=== PATIENT | female | born 1990 | race Caucasian/White ===

== ENCOUNTER 2019-03-14 11:37 | Emergency (ER) | payer OTHER ==
[~2019-03-14] VITALS: Ht 167.6 cm; Wt 74.6 kg
[~2019-03-14 11:37] MED LIST: IBUP800T48 PO
[2019-03-14 11:41] VITALS: BP 114/73; PULSE 71; RESP 20; Ht 167.6 cm; Wt 74.6 kg
[2019-03-14] MEDS ORDERED: KETOROLAC 60 MG INJ IM STA (12:10)
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
== END 2019-03-14 14:00 | disposition home or self-care (01) ==
LOC: FTE 11:37
DX: M25.522 Pain in left elbow (principal); M79.644 Pain in right finger(s)
CPT/HCPCS: 29130; 73080; 73140; 81025; 96372; J1885; Z7502